=== PATIENT | female | born 1950 ===

== ENCOUNTER 2020-10-03 15:35 | Outpatient (CLI) | payer OTHER | END 2020-10-03 15:40 | disposition home or self-care (01) | LOC: NUCLEAR 15:35 | PROVIDERS: ATTEND General Practice | DX: M81.0 Age-related osteoporosis without current pathological fracture (principal); E55.9 Vitamin D deficiency, unspecified; N95.1 Menopausal and female climacteric states ==

== ENCOUNTER 2020-10-06 10:03 | Outpatient (CLI) | payer OTHER | END 2020-10-06 10:18 | disposition home or self-care (01) | LOC: TOM 10:03 | PROVIDERS: ATTEND Internal Medicine Gastroenterology | DX: R10.33 Periumbilical pain (principal); K46.9 Unspecified abdominal hernia without obstruction or gangrene ==

== ENCOUNTER 2023-02-04 10:40 | Outpatient (CLI) | payer OTHER | END 2023-02-04 10:49 | disposition home or self-care (01) | LOC: MAMO-SONO 10:40 | PROVIDERS: ATTEND Obstetrics & Gynecology | DX: N60.11 Diffuse cystic mastopathy of right breast (principal); N60.12 Diffuse cystic mastopathy of left breast; Z12.31 Encounter for screening mammogram for malignant neoplasm of breast ==

== ENCOUNTER 2023-02-06 08:55 | Outpatient (CLI) | payer OTHER | END 2023-02-06 09:06 | disposition home or self-care (01) | LOC: SONOGRAMA 08:55 | PROVIDERS: ATTEND Obstetrics & Gynecology | DX: N84.0 Polyp of corpus uteri (principal) ==

== ENCOUNTER 2023-02-06 10:38 | Outpatient (CLI) | payer OTHER | END 2023-02-06 10:42 | disposition home or self-care (01) | LOC: NUCLEAR 10:38 | PROVIDERS: ATTEND Obstetrics & Gynecology | DX: M81.0 Age-related osteoporosis without current pathological fracture (principal) ==

== ENCOUNTER 2023-04-14 07:00 | Day surgery (SDC) | payer OTHER ==
[~2023-04-14] VITALS: Ht 152.4 cm; Wt 73.5 kg
[~2023-04-14 07:00] MED LIST: LEVO-T88 MCG PO; PRAVASTATIN SOD20 MG PO
== END 2023-04-14 20:50 | disposition home or self-care (01) ==
LOC: CIR.AMB 07:00
PROVIDERS: ATTEND Obstetrics & Gynecology
DX: N84.0 Polyp of corpus uteri (principal); Z20.822 Contact with and (suspected) exposure to COVID-19; Z88.2 Allergy status to sulfonamides; Z88.1 Allergy status to other antibiotic agents